=== PATIENT | male | born 1980 ===

== ENCOUNTER 2017-12-18 14:32 | Emergency (ER) | payer OTHER ==
[2017-12-18 14:40] VITALS: BP 130/64
[2017-12-18] MEDS ORDERED: DUONEB *Not for PRN Use IH ONE ×2 (14:42→14:47)
[2017-12-18] MEDS ORDERED: MAGNESIUM SULFATE 2GM/50ML 2 GM/50 ML BAG IV ONE (18:37)
[2017-12-18] MEDS ORDERED: GUAIFENESIN DM SYRUP PO ONE (18:45)
[2017-12-18] MEDS ORDERED: PROVENTIL IH ONE (18:45)
[2017-12-18] MEDS ORDERED: ZOFRAN IV ONE (18:49)
--- NOTE | 2017-12-18 18:51 | Emergency Department Report ---
HPI - General Chief Complaint: Adult Asthma Time Seen by Provider: 12/18/17 18:14 - HPI HPI: The patient is a 37yo male who presents for evaluation of dyspnea. The patient has history of asthma. The patient reports 1 week of constant dyspnea and wheezing, severe for the past one day, exacerbated with exertion or coughing, improved with rest. He has also expressed a no productive cough for the same duration. The patient denies fever, trauma to the chest, syncope, hemoptysis, unilateral leg swelling, recent immobilization, history of DVT or PE, recent cancer, history of familial coagulation disorder. ED Past Medical Hx - Past Medical History Hx Diabetes: Yes Hx Asthma: Yes - Surgical History Past Surgical History?: No - Social History Smoking Status: Never Smoker Substance Use Type: Alcohol - Medications Home Medications: Home Medications Medication Instructions Recorded Confirmed Last Taken Type ALBUTEROL Inhaler [ProAir HFA 2 puff IH QID PRN #1 inhalation 12/18/17 Unknown Rx Inhaler] Azithromycin [Zithromax Z-CHERRY] 250 mg PO QDAY #6 tablet 12/18/17 Unknown Rx Benzonatate [Tessalon Perles] 100 mg PO Q8HR #20 capsule 12/18/17 Unknown Rx predniSONE [Deltasone] 20 mg PO QDAY #5 tab 12/18/17 Unknown Rx ED Review of Systems ROS: Stated complaint: DIFFICULTY BREATHING Other details as noted in HPI Constitutional: denies: fever ENT: denies: throat or neck pain Respiratory: reports: cough, shortness of breath Cardiovascular: denies: chest pain Endocrine: denies unexplained weight loss or gain Gastrointestinal: denies: abdominal pain, nausea Genitourinary: denies: dysuria Musculoskeletal: denies: leg swelling Skin: denies: rash Neurological: denies: headache Hematological/Lymphatic: denies: easy bleeding or easy bruising Psych: denies sadness or hopelessness Physical Exam - Physical Exam Vital Signs: Vital Signs 12/18/17 14:36 Temperature 98.1 F Pulse Rate 102 H Respiratory 20 Rate Blood Pressure 130/64 O2 Sat by Pulse 95 Oximetry Physical Exam: General: well-nourished, well-developed, no acute distress Head: Normocephalic, atraumatic Eyes: normal sclera ENT: Mucous membranes are pink and moist Neck: trachea midline, neck supple, No neck stiffness, no cervical adenopathy Respiratory: Diminished breath sounds and wheezing present throughout lung is bilaterally, no costal retractions, no respiratory distress Cardio: S1 and S2 present, no murmurs, rubs, gallops, capillary refill is brisk Abdomen: Normoactive bowel sounds, soft abdomen, no rigidity, no guarding or rebound tenderness Chest WALL/Back: No tenderness to palpation of the chest wall, no CVA tenderness with percussion Musc: No pitting edema Skin: No rash Neuro: no facial drooping, normal speech Psych: Normal affect ED Course Vital Signs 12/18/17 14:36 Temperature 98.1 F Pulse Rate 102 H Respiratory 20 Rate Blood Pressure 130/64 O2 Sat by Pulse 95 Oximetry ED Medical Decision Making - Medical Decision Making The patient was seen and examined by myself. The patient is placed on a environmental monitoring technician and continuous pulse ox. On initial evaluation, the patient was found to be in no distress. Evaluation orders were placed. The patient is given multiple albuterol breathing treatmentf, IV magnesium, and IV site measuring or txt of his asthma exacerbation. He is given guaifenesin for treatment of his cough. Chest x-ray negative for focal consolidation, pleural effusions, pulmonary congestion, pneumothorax, or other acute cardio pulmonary disease process. Lab results are grossly not concerning. The patient was reevaluated and reported that their symptoms were markedly improved. On reexamination the patient is found to have normal respiratory rate and O2 sat on pulse oximetry, with no costal retractions or diminishment of breath sounds on auscultation. The patient is stable for discharge with outpatient follow- up. The patient is given follow-up and return instructions. The patient expressed understanding and agreed with the plan. The patient is discharged in stable condition. Critical care attestation.: If time is entered above; I have spent that time in minutes in the direct care of this critically ill patient, excluding procedure time. ED Disposition Clinical Impression: Dehydration, Upper respiratory infection, acute Asthma Qualifiers: Asthma severity: mild Asthma persistence: intermittent Asthma complication type : with acute exacerbation Qualified Code(s): J45.21 - Mild intermittent asthma with (acute) exacerbation Disposition: - TO HOME OR SELFCARE Is pt being admited?: No Does the pt Need Aspirin: No Condition: Stable Instructions: Asthma (ED), Upper Respiratory Infection (ED), Viral Syndrome (ED ) Prescriptions: ALBUTEROL Inhaler [ProAir HFA Inhaler] 2 puff IH QID PRN #1 inhalation PRN Reason: Shortness Of Breath Azithromycin [Zithromax Z-CHERRY] 250 mg PO QDAY #6 tablet Benzonatate [Tessalon Perles] 100 mg PO Q8HR #20 capsule predniSONE [Deltasone] 20 mg PO QDAY #5 tab Referrals: PRIMARY CARE, [Primary Care Provider] - 3-5 Days Time of Disposition: 18:59
[2017-12-18] MEDS ORDERED: ZOFRAN ODT ONE (18:54)
[2017-12-18] MEDS: NACL 0.9% 1000 ML 1,000 ML IV ONE ×2 (18:56→18:59)
[2017-12-18] MEDS ORDERED: ZOFRAN ODT PO ONE (18:57)
--- NOTE | 2017-12-18 19:55 | XRay Report ---
FINAL REPORT PROCEDURE: XR CHEST 1V AP TECHNIQUE: A portable AP chest radiograph was obtained at 12/18/2017 23:01 ([facility]) . CPT 99738 HISTORY: Dyspnea and wheezing. COMPARISON: No prior studies are available for comparison. FINDINGS: Heart: Normal. Mediastinum/Vessels: Normal. Lungs/Pleural space: Subtle peribronchial thickening. Mild left retrocardiac opacity. Minimal blunting of the left costophrenic angle. Bony thorax: No acute osseous abnormality. Bilateral nipple piercings. Life support devices: None. IMPRESSION: Subtle peribronchial thickening, consider bronchitis. Mild left retrocardiac opacity, consider atelectasis but cannot exclude mild airspace disease. Trace left pleural effusion.
== END 2017-12-18 20:28 | disposition home or self-care (01) ==
LOC: ED 14:32
DX: J06.9 Acute upper respiratory infection, unspecified (principal); E86.0 Dehydration; J45.909 Unspecified asthma, uncomplicated; E11.9 Type 2 diabetes mellitus without complications; Z88.6 Allergy status to analgesic agent
CPT/HCPCS: 71045; 94640; 96361; 96374; 96375; 99284; J2930; J3475; J7030; Q0162